=== PATIENT | female | born 1985 | race African-American/Black ===

== ENCOUNTER 2024-03-03 22:23 | Emergency (ER) | payer MEDICAID ==
[2024-03-03] MEDS ORDERED: Acetaminophen 500 MG TAB ONE (23:24)
[2024-03-03] MEDS ORDERED: diphenhydrAMINE 25 MG CAP ONE (23:25)
== END 2024-03-03 23:30 | disposition home or self-care (01) ==
LOC: ERS 22:23
DX: O99.712 Diseases of the skin and subcutaneous tissue complicating pregnancy, second trimester (principal); T78.40XA Allergy, unspecified, initial encounter; Z3A.20 20 weeks gestation of pregnancy
CPT/HCPCS: 99284

== ENCOUNTER 2024-03-06 16:40 | Emergency (ER) | payer MEDICAID ==
[2024-03-06] MEDS ORDERED: Acetaminophen 500 MG TAB ONE (19:35)
== END 2024-03-06 23:41 | disposition home or self-care (01) ==
LOC: ERS 16:40
DX: R45.7 State of emotional shock and stress, unspecified (principal); F17.210 Nicotine dependence, cigarettes, uncomplicated
CPT/HCPCS: 99283